=== PATIENT | male | born 1980 | race Asian ===

== ENCOUNTER 2017-12-09 10:24 | Day surgery (SDC) | END 2017-12-09 17:50 | disposition home or self-care (01) ==

== ENCOUNTER 2017-12-27 07:53 | Day surgery (SDC) | END 2017-12-27 13:50 | disposition home or self-care (01) ==

== ENCOUNTER 2018-02-21 10:01 | Emergency (ER) | END 2018-02-21 15:47 | disposition home or self-care (01) ==

== ENCOUNTER → 2018-02-21 | Outpatient (CLI) | END | disposition home or self-care (01) ==